=== PATIENT | female | born 1960 | race Caucasian/White ===

== ENCOUNTER 2016-10-26 06:24 | Day surgery (SDC) | payer BC ==
[~2016-10-26 06:24] MED LIST: Lactated Ringers 1,000 ML IV SCH; Sodium Chloride 0.9% 10 ML Syringe FLUSH PRN; Sodium Chloride 0.9% 2.5 ML Syringe FLUSH PRN
--- NOTE | 2016-10-26 06:57 | PCM.PREANE ---
Preanesthetic Assessment - Anesthesia/Transfusion/Family Hx Anesthesia History: Prior Anesthesia Without Reaction Family History of Anesthesia Reaction: No Transfusion History: No Prior Transfusion(s) Intubation History: Unknown - Physical Assessment O2 Sat by Pulse Oximetry: 100 Respiratory Rate: 16 Vital Signs: Last Vital Signs Temp 36.4 C 10/26/16 06:44 Pulse 74 10/26/16 06:44 Resp 16 10/26/16 06:44 BP 128/78 10/26/16 06:44 Pulse Ox 100 10/26/16 06:44 Height: 1.73 m Weight: 72.575 kg ASA Class: 2 Mental Status: Alert & Oriented x3 Airway Class: Mallampati = 2 Dentition: Reports: Normal Dentition Thyro-Mental Finger Breadths: 3 Mouth Opening Finger Breadths: 3 ROM/Head Extension: Full Lungs: Clear to Auscultation, Normal Respiratory Effort Cardiovascular: Regular Rate, Regular Rhythm - Lab Values: Laboratory Last Values Urine HCG, Qual NEGATIVE (NEGATIVE) 10/26/16 06:30 - Allergies Allergies/Adverse Reactions: Allergies Allergy/AdvReac Type Severity Reaction Status Date / Time Gadolinium-Containing Allergy Hives Verified 10/06/16 08:14 Contrast Medi - Blood Blood Available: No - Anesthesia Plan Pre-Op Medication Ordered: None - Acknowledgements Anesthesia Type Planned: MAC Pt an Appropriate Candidate for the Planned Anesthesia: Yes Alternatives and Risks of Anesthesia Discussed w Pt/Guardian: Yes Pt/Guardian Understands and Agrees with Anesthesia Plan: Yes PreAnesthesia Questionnaire HEENT History: Reports: None Gastrointestinal History: Reports: GERD Genitourinary History: Reports: None 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: 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 History: Reports: None Psychiatric History: Reports: Anxiety, Depression Oncologic (Cancer) History: Reports: Basal Cell Carcinoma Other Oncologic History: basal cell carcinoma to shoulder - Past Surgical History Head Surgeries/Procedures: Reports: None HEENT Surgical History: Reports: LASIK Female Surgical History: Reports: Tubal Ligation Dermatological Surgical History: Reports: Skin Biopsy - SUBSTANCE USE Smoking Status *Q: Never Smoker Recreational Drug Use History: No - HOME MEDS Home Medications: Home Meds Escitalopram [Lexapro] 10 mg PO DAILY 10/06/16 [History] Esomeprazole Magnesium [Nexium] 20 mg PO DAILY 10/06/16 [History] Estradiol 1 patch TRDERM ASDIRECTED 10/06/16 [History] Fluticasone Propionate [Flonase] 1 spray NASBOTH DAILY 10/06/16 [History] Progesterone,Micronized [Prometrium] 100 mg PO DAILY 10/06/16 [History] Nystatin [Nystatin Crm] 1 applic TOP ASDIRECTED PRN 10/23/16 [History] - CURRENT (IN HOUSE) MEDS Current Meds: Current Medications Lactated Ringer's (Ringers, Lactated) 1,000 mls @ 125 mls/hr IV ASDIRECTED ELSI Last Admin: 10/26/16 06:45 Dose: 125 mls/hr Sodium Chloride (Saline Flush) 10 ml FLUSH ASDIRECTED PRN PRN Reason: Keep Vein Open Sodium Chloride (Saline Flush) 2.5 ml FLUSH ASDIRECTED PRN PRN Reason: Keep Vein Open
[2016-10-26] MEDS ORDERED: Propofol 200 MG/20 ML SDV ONE ×2 (07:26→07:49)
[2016-10-26] MEDS ORDERED: fentaNYL 100 MCG/2 ML SDV ONE (07:26)
[2016-10-26] MEDS ORDERED: Midazolam 1 MG/ML 2 ML SDV ONE (07:26)
--- NOTE | 2016-10-26 08:11 | PCM.OPNOTE ---
- General Post-Op/Procedure Note Date of Surgery/Procedure: 10/26/16 Operative Procedure(s): Diagnostic EGD & Colonoscopy Findings: 1. Hyperplastic appearing Gastric polyp 2. normal appearing colon Post-Op Diagnosis: 1. Hyperplastic appearing Gastric polyp. 2. normal appearing colon Anesthesia Technique: [facility] [place] Primary Surgeon: Vivi Lui Pathology: samples obtained from Body, Antrum, Fundus & Gastric Polyp EBL in mLs: 0 Complications: None Condition: Good
--- NOTE | 2016-10-26 08:30 | PCM.PREANE ---
Preanesthetic Assessment - Anesthesia/Transfusion/Family Hx Anesthesia History: Prior Anesthesia Without Reaction Family History of Anesthesia Reaction: No Transfusion History: No Prior Transfusion(s) Intubation History: Unknown - Review of Systems General: No Symptoms Pulmonary: No Symptoms Cardiovascular: No Symptoms Gastrointestinal: No Symptoms Neurological: No Symptoms, Change in Speech - Physical Assessment NPO Status Date: 10/25/16 NPO Status Time: 23:00 O2 Sat by Pulse Oximetry: 97 Respiratory Rate: 14 Vital Signs: Last Vital Signs Temp 36.4 C 10/26/16 06:44 Pulse 85 10/26/16 08:17 Resp 14 10/26/16 08:17 BP 100/63 10/26/16 08:17 Pulse Ox 97 10/26/16 08:17 Height: 1.73 m Weight: 72.575 kg ASA Class: 2 Mental Status: Alert & Oriented x3 Airway Class: Mallampati = 2 Dentition: Reports: Dentures (upper and lower) Thyro-Mental Finger Breadths: 3 Mouth Opening Finger Breadths: 3 ROM/Head Extension: Limited/Partial Lungs: Clear to Auscultation, Normal Respiratory Effort Cardiovascular: Regular Rate, Regular Rhythm - Lab Values: Laboratory Last Values Urine HCG, Qual NEGATIVE (NEGATIVE) 10/26/16 06:30 - Allergies Allergies/Adverse Reactions: Allergies Allergy/AdvReac Type Severity Reaction Status Date / Time Gadolinium-Containing Allergy Hives Verified 10/06/16 08:14 Contrast Medi - Blood Blood Available: No - Anesthesia Plan Pre-Op Medication Ordered: None - Acknowledgements Anesthesia Type Planned: General Anesthesia Pt an Appropriate Candidate for the Planned Anesthesia: Yes Alternatives and Risks of Anesthesia Discussed w Pt/Guardian: Yes Pt/Guardian Understands and Agrees with Anesthesia Plan: Yes PreAnesthesia Questionnaire HEENT History: Reports: None Respiratory History: Reports: SOB (on exertion, can walk 2 blocks without SOB) Gastrointestinal History: Reports: GERD Genitourinary History: Reports: None 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: 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 History: Reports: Arthritis Psychiatric History: Reports: Anxiety, Depression Oncologic (Cancer) History: Reports: Basal Cell Carcinoma, Other (See Below) ( infiltrating ductal CA right breast) Other Oncologic History: basal cell carcinoma to shoulder - Past Surgical History Head Surgeries/Procedures: Reports: None HEENT Surgical History: Reports: LASIK GI Surgical History: Reports: Colonoscopy Female Surgical History: Reports: Tubal Ligation 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 Surgical History: Reports: Other (See Below) (foot surgery) Dermatological Surgical History: Reports: Skin Biopsy - SUBSTANCE USE Smoking Status *Q: Former Smoker (quit long time ago) Days Per Week of Alcohol Use: 1 Recreational Drug Use History: No - HOME MEDS Home Medications: Home Meds Escitalopram [Lexapro] 10 mg PO DAILY 10/06/16 [History] Esomeprazole Magnesium [Nexium] 20 mg PO DAILY 10/06/16 [History] Estradiol 1 patch TRDERM ASDIRECTED 10/06/16 [History] Fluticasone Propionate [Flonase] 1 spray NASBOTH DAILY 10/06/16 [History] Progesterone,Micronized [Prometrium] 100 mg PO DAILY 10/06/16 [History] Nystatin [Nystatin Crm] 1 applic TOP ASDIRECTED PRN 10/23/16 [History] - CURRENT (IN HOUSE) MEDS Current Meds: Current Medications Lactated Ringer's (Ringers, Lactated) 1,000 mls @ 125 mls/hr IV ASDIRECTED ELSI Last Admin: 10/26/16 06:45 Dose: 125 mls/hr Sodium Chloride (Saline Flush) 10 ml FLUSH ASDIRECTED PRN PRN Reason: Keep Vein Open Sodium Chloride (Saline Flush) 2.5 ml FLUSH ASDIRECTED PRN PRN Reason: Keep Vein Open Discontinued Medications Fentanyl (Sublimaze) Confirm Administered Dose 100 mcg .ROUTE .STK-MED ONE Stop: 10/26/16 07:27 Midazolam HCl (Versed 1 Mg/Ml) Confirm Administered Dose 2 mg .ROUTE .STK-MED ONE Stop: 10/26/16 07:27 Propofol (Diprivan 20 Ml) Confirm Administered Dose 200 mg .ROUTE .STK-MED ONE Stop: 10/26/16 07:27 Propofol (Diprivan 20 Ml) Confirm Administered Dose 200 mg .ROUTE .STK-MED ONE Stop: 10/26/16 07:50
[2016-10-26 10:02] VITALS: BP 115/60
--- NOTE | 2016-10-26 15:01 | OR ---
SURGEON: DARLENE HOLLOWAY MD DATE OF PROCEDURE: 10/26/2016 PREOPERATIVE DIAGNOSES: Right upper quadrant pain, irregular bowel habits. POSTOPERATIVE DIAGNOSIS: Hyperplastic gastric polyps, normal colonoscopy. PROCEDURE PERFORMED: Diagnostic esophagogastroduodenoscopy and colonoscopy. ANESTHESIA: MAC. INSTRUMENT USED: Olympus endoscope, Olympus colonoscope. EXTENT OF EXAM: To the second portion of the duodenum, to the cecum. PREPARATION: Good. LIMITATIONS: None. INDICATIONS: The patient is a 56-year-old female who presents to clinic with epigastric and right upper quadrant pain as well as a change in her bowel habits. The decision was made to perform a diagnostic EGD and colonoscopy. The patient and I discussed the procedure as well as expected perioperative course. We discussed the risks, including bleeding, infection, or damage to surrounding structures including perforation. The patient verbalized understanding and wishes to proceed. PROCEDURE IN DETAIL: The patient was brought to the endoscopy suite and placed in a beach chair position. A time-out was completed verifying the patient's name, age, date of , allergies, and procedure to be performed. A bite block was placed in the patient's mouth and monitored anesthesia care was induced. Continuous oxygen was provided via nasal cannula throughout the procedure. After adequate sedation was achieved, an Olympus endoscope was placed in the patient's mouth and advanced under direct visualization to the level of the second portion of the duodenum. The duodenum appeared normal and a photograph was taken. The scope was then pulled back while examining the color, texture, anatomy, and integrity mucosa of the upper GI tract. The remainder of the duodenum appeared normal. The scope was brought into the stomach and a photograph taken of the pylorus as well as the GE junction which appeared normal. The patient had multiple hyperplastic appearing polyps throughout the body of the stomach. Biopsies were taken of these and sent to Pathology. Biopsies of the normal gastric antrum, body, and fundus were sent for H. pylori testing. The scope was then brought into the esophagus and a photograph taken of the GE junction which appeared normal. The remainder of the esophageal mucosa appeared free of pathology. The scope was removed from the patient and this portion of the procedure was terminated. The patient was placed in the left lateral decubitus position. A digital rectal exam performed. The patient had a small posterior anal skin tag, but otherwise appeared grossly normal. A well-lubricated colonoscope was inserted into the rectum and advanced under direct visualization to the level of the cecum. The cecum was identified by both visual and anatomic landmarks. A photograph was taken of the cecal cap. I was unable to retroflex the scope within the cecum due to looping of the scope more proximally. The scope was then fully withdrawn while examining the color, texture, anatomy, and integrity mucosa from the cecum to the anal canal. This was consistent with normal colonic mucosa. The scope was brought into the rectum and retroflexed to allow visualization of the anal canal opening. This appeared normal and a photograph was taken. The scope was then straightened out and removed from the patient. The cecum to anus time was 7 minutes. The patient tolerated the procedure well and was taken to PACU in stable condition. ENDOSCOPIC DIAGNOSIS: Hyperplastic gastric polyp. RECOMMENDATIONS: Follow up in clinic in 2 weeks. LINDSAY DE LEON /[id number]
== END 2016-10-26 09:00 | disposition home or self-care (01) ==
LOC: MW.SDS 06:24
PROVIDERS: ATTEND Surgery
PROC: 0DB68ZX Excision of Stomach, Via Natural or Artificial Opening Endoscopic, Diagnostic (ICD-10-PCS; principal; 2016-10-26)
PROC: 0DJD8ZZ Inspection of Lower Intestinal Tract, Via Natural or Artificial Opening Endoscopic (ICD-10-PCS; 2016-10-26)
DX: K31.7 Polyp of stomach and duodenum (principal); K21.9 Gastro-esophageal reflux disease without esophagitis; F41.9 Anxiety disorder, unspecified; F32.9 Major depressive disorder, single episode, unspecified; Z79.51 Long term (current) use of inhaled steroids; Z79.899 Other long term (current) drug therapy; Z79.890 Hormone replacement therapy; Z91.041 Radiographic dye allergy status; Z98.51 Tubal ligation status; Z98.890 Other specified postprocedural states; Z85.820 Personal history of malignant melanoma of skin
CPT/HCPCS: 43239; 45378; 81025; J2250; J3010; J7120; 00740; 88305; 88312; J2704

== ENCOUNTER 2017-05-09 06:36 | Day surgery (SDC) | payer BC ==
[~2017-05-09 06:36] MED LIST changes: +ceFAZolin 2 GM in Premix Bag 1 BAG IV ONE
[2017-05-09] MEDS ORDERED: Scopolamine 1.5 MG Transdermal Patch TRDERM PRN (06:56)
--- NOTE | 2017-05-09 07:02 | PCM.PREANE ---
Preanesthetic Assessment - Anesthesia/Transfusion/Family Hx Anesthesia History: Prior Anesthesia Without Reaction Family History of Anesthesia Reaction: No Transfusion History: No Prior Transfusion(s) Intubation History: Unknown - Review of Systems General: No Symptoms Pulmonary: No Symptoms Cardiovascular: No Symptoms Gastrointestinal: No Symptoms Neurological: No Symptoms - Physical Assessment NPO Status Date: 05/08/17 Height: 1.73 m Weight: 73.028 kg ASA Class: 2 Mental Status: Alert & Oriented x3 Airway Class: Mallampati = 1 Dentition: Reports: Normal Dentition ROM/Head Extension: Full Lungs: Clear to Auscultation - Lab Values: Laboratory Last Values Urine HCG, Qual NEGATIVE (NEGATIVE) 05/09/17 06:51 - Allergies Allergies/Adverse Reactions: Allergies Allergy/AdvReac Type Severity Reaction Status Date / Time Gadolinium-Containing Allergy Hives Verified 05/03/17 14:12 Contrast Medi - Blood Blood Available: Yes - Anesthesia Plan Pre-Op Medication Ordered: Other (scop) - Acknowledgements Anesthesia Type Planned: General Anesthesia Pt an Appropriate Candidate for the Planned Anesthesia: Yes Alternatives and Risks of Anesthesia Discussed w Pt/Guardian: Yes Pt/Guardian Understands and Agrees with Anesthesia Plan: Yes PreAnesthesia Questionnaire HEENT History: Reports: None Respiratory History: Reports: None Gastrointestinal History: Reports: GERD Genitourinary History: Reports: None 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: 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 History: Reports: Fracture Other 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 History: fx foot Neurological History: Reports: None Psychiatric History: Reports: Anxiety, Depression Endocrine/Metabolic History: Reports: None Hematologic History: Reports: None Immunologic History: Reports: None Oncologic (Cancer) History: Reports: Basal Cell Carcinoma, Other (See Below) Other Oncologic History: basal cell carcinoma to shoulder Dermatologic History: Reports: None - Past Surgical History Head Surgeries/Procedures: Reports: None HEENT Surgical History: Reports: LASIK GI Surgical History: Reports: Colonoscopy Female Surgical History: Reports: Tubal Ligation 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 Surgical History: Dermatological Surgical History: Reports: Skin Biopsy - SUBSTANCE USE Smoking Status *Q: Never Smoker Days Per Week of Alcohol Use: 1 Recreational Drug Use History: No - HOME MEDS Home Medications: Home Meds Escitalopram [Lexapro] 20 mg PO DAILY 10/06/16 [History] Estradiol 1 patch TRDERM ASDIRECTED 10/06/16 [History] Fluticasone Propionate [Flonase] 1 spray NASBOTH DAILY 10/06/16 [History] Progesterone,Micronized [Prometrium] 100 mg PO DAILY 10/06/16 [History] Pantoprazole Sodium 40 mg PO DAILY 05/03/17 [History] Sucralfate 1 gm PO TID 05/03/17 [History] - CURRENT (IN HOUSE) MEDS Current Meds: Current Medications Lactated Ringer's (Ringers, Lactated) 1,000 mls @ 125 mls/hr IV ASDIRECTED ELSI Scopolamine (Transderm-Scop) 1.5 mg TRDERM Q72H PRN PRN Reason: Nausea/Vomiting Sodium Chloride (Saline Flush) 10 ml FLUSH ASDIRECTED PRN PRN Reason: Keep Vein Open Sodium Chloride (Saline Flush) 2.5 ml FLUSH ASDIRECTED PRN PRN Reason: Keep Vein Open Discontinued Medications Cefazolin Sodium/Dextrose 2 gm (/ Premix) 50 mls @ 100 mls/hr IV ONETIME ONE Stop: 05/07/17 13:45
[2017-05-09] MEDS ORDERED: Bupivacaine 0.5% 30 ML SDV ONE (07:27)
[2017-05-09] MEDS ORDERED: Ondansetron 4 MG/2 ML SDV ONE ×2 (07:35→07:37)
[2017-05-09] MEDS ORDERED: Lidocaine 2% 5 ML SDV ONE ×2 (07:35→07:37)
[2017-05-09] MEDS ORDERED: Dexamethasone 4 MG/ML 5 ML MDV ONE ×2 (07:35→07:37)
[2017-05-09] MEDS ORDERED: Ketorolac 30 MG/ML SDV ONE ×2 (07:35→07:37)
[2017-05-09] MEDS ORDERED: Atropine 1 MG/ML SDV ONE ×2 (07:35→07:37)
[2017-05-09] MEDS ORDERED: Rocuronium 10 MG/ML 10 ML Syringe ONE ×2 (07:35→07:37)
[2017-05-09] MEDS ORDERED: Midazolam 1 MG/ML 2 ML SDV ONE (07:36)
[2017-05-09] MEDS ORDERED: Propofol 200 MG/20 ML SDV ONE (07:36)
[2017-05-09] MEDS ORDERED: fentaNYL 100 MCG/2 ML SDV ONE (07:36)
[2017-05-09] MEDS ORDERED: ceFAZolin 1 GM Vial ONE (07:37)
[2017-05-09] MEDS ORDERED: Neostigmine Methylsulfate 1 MG/ML 5 ML Syringe ONE (08:27)
[2017-05-09] MEDS ORDERED: ePHEDrine 50 MG/ML SDV ONE (08:45)
[2017-05-09] MEDS: fentaNYL 100 MCG/2 ML SDV IVPUSH PRN ×3 (09:38→11:41)
--- NOTE | 2017-05-09 09:41 | PCM.OPNOTE ---
- General Post-Op/Procedure Note Date of Surgery/Procedure: 05/09/17 Operative Procedure(s): Laparoscopic cholecystectomy Findings: Normal appearing gallbladder Pre Op Diagnosis: Biliary colic Post-Op Diagnosis: same Anesthesia Technique: General ET Tube Primary Surgeon: Vivi Lui Fluid Replacement, Intraop: 1,500 Output, Urine Amount: 500 EBL in mLs: 5 Condition: Good
--- NOTE | 2017-05-09 10:01 | PCM.POSTAN ---
POST ANESTHESIA ASSESSMENT - MENTAL STATUS Mental Status: Alert, Oriented - RESPIRATORY Respiratory Status: Respiratory Rate WNL, Airway Patent, O2 Saturation Stable - CARDIOVASCULAR CV Status: Pulse Rate WNL, Blood Pressure Stable - GASTROINTESTINAL GI Status: No Symptoms - PAIN Pain Score: 4 - POST OP HYDRATION Hydration Status: Adequate & Stable - OBSERVATIONS Free Text/Narrative:: Pt stable for discharge to phase II recovery with no apparent anesthesia problems
[2017-05-09] MEDS ORDERED: Acetaminophen/oxyCODONE 325-5 MG Tab PO ONE (11:18)
--- NOTE | 2017-05-09 13:08 | PCM48HPAN ---
Post Anesthesia Note - EVALUATION WITHIN 48HRS OF ANESTHETIC Vital Signs in Normal Range: Yes Patient Participated in Evaluation: Yes Respiratory Function Stable: Yes Airway Patent: Yes Cardiovascular Function Stable: Yes Hydration Status Stable: Yes Pain Control Satisfactory: Yes Nausea and Vomiting Control Satisfactory: Yes Mental Status Recovered: Yes
[2017-05-09 13:31] VITALS: BP 123/69
--- NOTE | 2017-05-09 17:11 | OR ---
SURGEON: VIVI HOLLOWAY MD DATE OF PROCEDURE: 05/09/2017 PREOPERATIVE DIAGNOSIS: Biliary hyperkinesia with biliary colic. POSTOPERATIVE DIAGNOSIS: Biliary hyperkinesia with biliary colic. PROCEDURE PERFORMED: Laparoscopic cholecystectomy. PRIMARY SURGEON: Vivi Holloway MD ANESTHESIA: General endotracheal anesthesia. FLUIDS: 1500 mL of crystalloid. URINE OUTPUT: 500 mL. ESTIMATED BLOOD LOSS: 5 mL. FINDINGS: Normal-appearing gallbladder. COMPLICATIONS: None. INDICATIONS: The patient is a 56-year-old female, who presents with right upper quadrant pain that occurs after meals. She underwent a right upper quadrant ultrasound that was normal. A HIDA scan was performed that showed a gallbladder ejection fraction greater than 90%. The patient underwent a diagnostic EGD that showed mild gastritis. She has been on sucralfate and Protonix for greater than 3 months now with no improvement in her symptoms. The patient also notes that the pain that she is experiencing occurred right after administration of the cholecystokinin during the HIDA scan. The decision was made to remove her gallbladder due to biliary hyperkinesia. The patient and I discussed the procedure as well as expected perioperative course. We discussed the risks including bleeding, infection, or damage to surrounding structures, including damage to the common bile duct. The patient verbalized understanding and wishes to proceed. PROCEDURE IN DETAIL: The patient was brought into the OR and placed on the OR table in supine position. A time-out was completed verifying the patient's name, age, date of , allergies, and procedure to be performed. General endotracheal anesthesia was induced. The left arm was tucked at the patient's side and a Chong catheter placed. The abdomen was prepped and draped in usual standard fashion. The infraumbilical fold was anesthetized with 0.5% Marcaine plain. An incision was made along the infraumbilical fold using an 11 blade. Cautery was used to dissect down to the level of the subcutaneous fat. S retractors were used to dissect down to the level of fascia. The fascia was grasped with Mago's and sharply incised with the curved Figueredo scissors. Entry into the abdomen was noted. A 12 mm Sally trocar was placed through the incision and the abdomen insufflated. A 5 mm 30-degree scope was inserted in the abdomen and I inspected the area underneath my initial incision site. There appeared to be no damage to surrounding structures. The patient was placed into reverse Trendelenburg position and airplaned slightly to the left. 5 mm trocars were placed in the following locations under direct visualization; 1 in the epigastric area, 1 in the right flank, and 1 along the right subcostal margin along the midclavicular line. The dome of the gallbladder was grasped with an atraumatic grasper through the right flank port and elevated above the liver. The infundibulum was noted and grasped with an atraumatic grasper through the subcostal port. The infundibulum was retracted to the right and inferiorly. The peritoneum overlying the cystic duct and artery was dissected away to obtain my critical view. Once I could identify my cystic duct, cystic artery, and I cleared away at one-third of the proximal cystic plate, I doubly clipped and ligated the cystic duct and artery. Electrocautery was used to dissect the gallbladder off the remainder of the gallbladder fossa. The gallbladder was then placed in an EndoCatch bag and removed through the infraumbilical port site. My 12 mm Sally trocar was then replaced in the abdomen and I inspected my operative field. The clips appeared to be in good position with no evidence of bile leakage and the operative field was hemostatic. The 5 mm trocars were then removed under direct visual visualization and the abdomen allowed to desufflate after removal of the 12 mm trocar. The fascia at the infraumbilical port site was closed with interrupted 0 Vicryl sutures. The subcutaneous fat was closed with interrupted 3-0 Vicryl and the skin was closed with a running 4- 0 Monocryl stitch. The 5 mm trocar sites were closed with interrupted 4-0 Monocryl. Steri-Strips and sterile dressings were applied. The patient tolerated the procedure well and was extubated and taken to the PACU in stable condition. LINDSAY DE LEON /[id number]
== END 2017-05-09 12:35 | disposition home or self-care (01) ==
LOC: MW.SDS 06:36
PROVIDERS: ATTEND Surgery
DX: K80.10 Calculus of gallbladder with chronic cholecystitis without obstruction (principal); K21.9 Gastro-esophageal reflux disease without esophagitis; F41.9 Anxiety disorder, unspecified; F32.9 Major depressive disorder, single episode, unspecified; Z98.890 Other specified postprocedural states; Z91.041 Radiographic dye allergy status; Z79.899 Other long term (current) drug therapy; Z98.51 Tubal ligation status; Z85.828 Personal history of other malignant neoplasm of skin
CPT/HCPCS: 47562; 81025; 88304; A9270; J0461; J0690; J1100; J1885; J2250; J2405; J3010; J7120; 00790; J2704

== ENCOUNTER 2017-05-13 12:40 | Observation (INO) | payer BC ==
[2017-05-13] MEDS ORDERED: Sodium Chloride 0.9% 1,000 ML IV ONE (13:06)
[2017-05-13] MEDS ORDERED: Ondansetron 4 MG/2 ML SDV IVPUSH ONE ×2 (13:06→14:53)
[2017-05-13] MEDS ORDERED: Sodium Chloride 0.9% 10 ML Syringe FLUSH PRN (13:06)
[2017-05-13] MEDS ORDERED: Sodium Chloride 0.9% 2.5 ML Syringe FLUSH PRN (13:06)
--- NOTE | 2017-05-13 13:17 | EDM.PDOC ---
ED HPI GENERAL MEDICAL PROBLEM - General Chief Complaint: Syncope Stated Complaint: BLACK OUT/FALL/HIT MOUTH Time Seen by Provider: 05/13/17 12:46 - History of Present Illness INITIAL COMMENTS - FREE TEXT/NARRATIVE: HISTORY AND PHYSICAL: History of present illness: The patient is a 56-year-old female who presents after having a syncopal event today and hitting her face and head. The patient underwent a laparoscopic cholecystectomy here on May 09 and has been doing well from that standpoint but did have nausea on Sunday and all day yesterday. Today she continued to have nausea and started having dry heaves prior to her syncopal event. Patient said she did not have vomiting yesterday and she's had no fevers chest pain and only mild abdominal pain at the incisions on her abdomen. Today she was leaving the bathroom at her home after going going to the bathroom and had nausea and some dry heaves while there and then had a syncopal event falling on the last step of her stairs and hitting her face. Patient says she has head and face pain since that event but no arm or leg back or chest wall pain. SHe says she has an neck ache but no specific area of pain. She has no neurosensory changes or extremity pain. She has no chest wall pain no shortness of breath and she remains nauseated. She has no mid or lower back pain. Patient lives alone and she is unsure exactly how long she was unconscious for but it was not for a significant amount of time. Patient says that her nose lip and teeth hurt and she did chip one of her front teeth. Patient says that today she is only a few crackers and yesterday she did not eat or drink much at all as well Review of systems: As per history of present illness and below otherwise all systems reviewed and negative. Past medical history: As per history of present illness and as reviewed below otherwise noncontributory. Surgical history: As per history of present illness and as reviewed below otherwise noncontributory. Social history: No reported history of drug or alcohol abuse. Family history: As per history of present illness and as reviewed below otherwise noncontributory. Physical exam: Gen.: Well-developed well-nourished female who is nontoxic and moves easily in the ED without distress or assistance. Vital signs have been noted by me HEENT: Atraumatic, normocephalic, pupils reactive, EOMs intact, there is no nasal blood and TMs are normal bilaterally negative for conjunctival pallor or scleral icterus, mucous membranes moist, throat clear, neck supple, nontender, trachea midline. There are no midline step-offs or defects of the cervical spine but there is some diffuse mid cervical spine tenderness and a c-collar was placed. Bite is normal and there is no mandible or maxillary tenderness but there is swelling of her upper lip without laceration and there is a small chip defect of her right central incisor. On palpation of the nasal bridge there is no instability but there is tenderness and there is no orbital defects crepitus or deformities but there is some diffuse tenderness. There are no lacerations of the face. On palpation of the teeth there is no gross subluxation appreciated even of the right central incisor Lungs: Clear to auscultation, breath sounds equal bilaterally, chest nontender. Heart: S1S2, regular, negative for clicks, rubs, or JVD. Abdomen: Soft, nondistended, intimal mid abdominal tenderness without localization no rebound or guarding. Bowel sounds are slightly hypoactive. The patient's incisional areas are healing without any drainage leakage or erythema Negative for masses or hepatosplenomegaly. Negative for costovertebral tenderness. Pelvis: Stable nontender. Genitourinary: Deferred. Rectal: Deferred. Extremities: Atraumatic with the exception of a superficial abrasion seen at the dorsal aspect of the left thumb without swelling or palpable bony deformities or tenderness., negative for cords or calf pain. Neurovascular unremarkable. Full range of motion without any defects or deficits Neuro: Awake, alert, oriented. Cranial nerves II through XII unremarkable. Cerebellum unremarkable. Motor and sensory unremarkable throughout. Exam nonfocal. Back: There are no midline step-offs tenderness defects of the thoracic or lumbar spine no soft tissue evidence of trauma such as ecchymosis soft tissue swelling or erythema Diagnostics: EKG orthostatic vitals CBC CMP amylase lipase UA urine culture troponin CT scan of the head C-spine and facial bones [employer]: IV O2 monitor c-collar was placed IV fluids Zofran On orthostatic vitals the patient's blood pressure does not change with position change but her heart rate did go up more than 20. On reevaluation the patient states that she still feels somewhat nauseated but is very thirsty so we will give her some ice chips. The c-collar was removed as the CT of the C-spine was negative. I discussed with them the CT scan findings of the left posterior molar and she states she is aware of that she has an impacted wisdom tooth that does involve her sinus and that is not new or different. She currently is having no pain there. I discussed with her admission for observation due to her syncopal event and back that she lives by herself. She also states that she does not feel back at her baseline and I agree that observation will be the safest and medically best care plan. I will inform Dr. Lui her surgeon of today's events as a courtesy and will discuss the case with the hospitalist Dr. Mak; after discussing the case with both of them at 1502 Dr. Lui will be admitting the patient. Impression: Syncopal event ,with blunt facial trauma and tooth injury/facial contusions , likely secondary to poor by mouth intake and orthostasis; history of recent laparoscopic cholecystectomy Definitive disposition and diagnosis as appropriate pending reevaluation and review of above. face Pain Score (Numeric/FACES): 7 - Related Data Allergies Allergy/AdvReac Type Severity Reaction Status Date / Time Gadolinium-Containing Allergy Hives Verified 05/13/17 12:46 Contrast Medi Home Meds: Home Meds Escitalopram [Lexapro] 20 mg PO DAILY 10/06/16 [History] Estradiol 1 patch TRDERM ASDIRECTED 10/06/16 [History] Fluticasone Propionate [Flonase] 1 spray NASBOTH DAILY 10/06/16 [History] Progesterone,Micronized [Prometrium] 100 mg PO DAILY 10/06/16 [History] Past Medical History HEENT History: Reports: None Respiratory History: Reports: None Gastrointestinal History: Reports: GERD Genitourinary History: Reports: None 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: 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 History: Reports: Fracture Other 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 History: fx foot Neurological History: Reports: None Psychiatric History: Reports: Anxiety, Depression Endocrine/Metabolic History: Reports: None Hematologic History: Reports: None Immunologic History: Reports: None Oncologic (Cancer) History: Reports: Basal Cell Carcinoma, Other (See Below) Other Oncologic History: basal cell carcinoma to shoulder Dermatologic History: Reports: None - Past Surgical History Head Surgeries/Procedures: Reports: None HEENT Surgical History: Reports: LASIK GI Surgical History: Reports: Colonoscopy Female Surgical History: Reports: Tubal Ligation Dermatological Surgical History: Reports: Skin Biopsy Social & Family History - Family History Family Medical History: Noncontributory - Tobacco Use Smoking Status *Q: Never Smoker - Caffeine Use Caffeine Use: Reports: None - Alcohol Use Days Per Week of Alcohol Use: 1 - Recreational Drug Use Recreational Drug Use: No Drug Use in Last 12 Months: No ED ROS GENERAL - Review of Systems Review Of Systems: ROS reveals no pertinent complaints other than HPI. ED EXAM, GENERAL - Physical Exam Exam: See Below (See dictation) Course - Vital Signs Last Recorded V/S: Last Vital Signs Temp 35.7 C 05/13/17 12:48 Pulse 84 05/13/17 12:48 Resp 18 05/13/17 12:48 BP 117/72 05/13/17 12:48 Pulse Ox 100 05/13/17 12:48 Orthostatic Blood Pressure [ 105/72 Standing] Orthostatic Blood Pressure [ 106/63 Sitting] Orthostatic Blood Pressure [ 115/67 Supine] - Orders/Labs/Meds Orders: Active Orders 24 hr Category Date Time Status Cardiac Monitoring [RC] . DIRECTED Care 05/13/17 13:04 Active EKG Documentation Completion [RC] STAT Care 05/13/17 13:04 Active Orthostatic Vital Signs [RC] ASDIRECTED Care 05/13/17 13:07 Active Oxygen Therapy, ED [RC] ASDIRECTED Care 05/13/17 13:04 Active Pulse Oximetry [RC] ASDIRECTED Care 05/13/17 13:04 Active Cervical Spine wo Cont [CT] Stat Exams 05/13/17 13:06 Taken Head wo Cont [CT] Stat Exams 05/13/17 13:05 Taken Max Facial Sinus wo Cont [CT] Stat Exams 05/13/17 13:05 Taken CULTURE URINE [RM] Stat Lab 05/13/17 13:30 Received Sodium Chloride 0.9% [Normal Saline] 1,000 ml Med 05/13/17 15:00 Active IV ASDIRECTED Sodium Chloride 0.9% [Saline Flush] Med 05/13/17 13:06 Active 10 ml FLUSH ASDIRECTED PRN Sodium Chloride 0.9% [Saline Flush] Med 05/13/17 13:06 Active 2.5 ml FLUSH ASDIRECTED PRN Saline Lock Insert [OM.PC] Stat Oth 05/13/17 13:04 Ordered Medication Orders Sodium Chloride (Normal Saline) 1,000 mls @ 150 mls/hr IV ASDIRECTED ELSI Sodium Chloride (Saline Flush) 10 ml FLUSH ASDIRECTED PRN PRN Reason: Keep Vein Open Last Admin: 05/13/17 13:26 Dose: 10 ml Sodium Chloride (Saline Flush) 2.5 ml FLUSH ASDIRECTED PRN PRN Reason: Keep Vein Open Last Admin: 05/13/17 13:26 Dose: 2.5 ml Labs: Laboratory Tests 05/13/17 05/13/17 05/13/17 Range/Units 13:14 13:14 13:14 WBC 8.07 (4.0-11.0) K/uL RBC 4.51 (4.30-5.90) M/uL Hgb 12.3 (12.0-16.0) g/dL Hct 37.7 (36.0-46.0) % MCV 83.6 (80.0-98.0) fL MCH 27.3 (27.0-32.0) pg MCHC 32.6 (31.0-37.0) g/dL RDW Std Deviation 41.6 (28.0-62.0) fl RDW Coeff of Rashel 14 (11.0-15.0) % Plt Count 236 (150-400) K/uL MPV 9.50 (7.40-12.00) fL Neut % (Auto) 63.5 (48.0-80.0) % Lymph % (Auto) 29.6 (16.0-40.0) % Pine % (Auto) 6.2 (0.0-15.0) % Eos % (Auto) 0.6 (0.0-7.0) % Baso % (Auto) 0.1 (0.0-1.5) % Neut # (Auto) 5.1 (1.4-5.7) K/uL Lymph # (Auto) 2.4 (0.6-2.4) K/uL Pine # (Auto) 0.5 (0.0-0.8) K/uL Eos # (Auto) 0.1 (0.0-0.7) K/uL Baso # (Auto) 0.0 (0.0-0.1) K/uL Nucleated RBC % 0.0 /100WBC Nucleated RBCs # 0 K/uL Sodium 136 (136-146) mmol/L Potassium 3.3 L (3.5-5.1) mmol/L Chloride 106 (98-110) mmol/L Carbon Dioxide 20 L (21-31) mmol/L BUN 15 (6.0-23.0) mg/dL Creatinine 1.1 (0.6-1.5) mg/dL Est Cr Clr Drug Dosing 58.98 mL/min Estimated GFR (MDRD) 51.8 ml/min Glucose 149 H (60-110) mg/dL Calcium 9.1 (8.8-10.8) mg/dL Total Bilirubin 1.3 (0.1-1.5) mg/dL AST 44 H (5-40) IU/L ALT 58 H (8-54) IU/L Alkaline Phosphatase 64 (40-150) Creatine Kinase 137 (9-236) IU/L Troponin I < 0.10 (0.0-0.29) NG/ML Total Protein 6.9 (6.0-8.0) g/dL Albumin 3.9 (3.5-5.0) g/dL Globulin 3.0 (2.0-3.5) g/dL Albumin/Globulin Ratio 1.3 (1.3-2.8) Amylase 54 (10-90) U/L Lipase 24 (7-80) U/L Urine Color Urine Appearance Urine pH (5.0-8.0) Ur Specific Ruth (1.001-1.035) Urine Protein (NEGATIVE) mg/dL Urine Glucose (UA) (NEGATIVE) mg/dL Urine Ketones (NEGATIVE) mg/dL Urine Occult Blood (NEGATIVE) Urine Nitrite (NEGATIVE) Urine Bilirubin (NEGATIVE) Urine Urobilinogen (<2.0) EU/dL Ur Leukocyte Esterase (NEGATIVE) Urine RBC (0-2/HPF) Urine WBC (0-5/HPF) Ur Epithelial Cells (NONE-FEW) Urine Bacteria (NEGATIVE) Urine Mucus (NONE-MOD) Urinalysis Comment 05/13/17 Range/Units 13:30 WBC (4.0-11.0) K/uL RBC (4.30-5.90) M/uL Hgb (12.0-16.0) g/dL Hct (36.0-46.0) % MCV (80.0-98.0) fL MCH (27.0-32.0) pg MCHC (31.0-37.0) g/dL RDW Std Deviation (28.0-62.0) fl RDW Coeff of Rashel (11.0-15.0) % Plt Count (150-400) K/uL MPV (7.40-12.00) fL Neut % (Auto) (48.0-80.0) % Lymph % (Auto) (16.0-40.0) % Pine % (Auto) (0.0-15.0) % Eos % (Auto) (0.0-7.0) % Baso % (Auto) (0.0-1.5) % Neut # (Auto) (1.4-5.7) K/uL Lymph # (Auto) (0.6-2.4) K/uL Pine # (Auto) (0.0-0.8) K/uL Eos # (Auto) (0.0-0.7) K/uL Baso # (Auto) (0.0-0.1) K/uL Nucleated RBC % /100WBC Nucleated RBCs # K/uL Sodium (136-146) mmol/L Potassium (3.5-5.1) mmol/L Chloride (98-110) mmol/L Carbon Dioxide (21-31) mmol/L BUN (6.0-23.0) mg/dL Creatinine (0.6-1.5) mg/dL Est Cr Clr Drug Dosing mL/min Estimated GFR (MDRD) ml/min Glucose (60-110) mg/dL Calcium (8.8-10.8) mg/dL Total Bilirubin (0.1-1.5) mg/dL AST (5-40) IU/L ALT (8-54) IU/L Alkaline Phosphatase (40-150) Creatine Kinase (9-236) IU/L Troponin I (0.0-0.29) NG/ML Total Protein (6.0-8.0) g/dL Albumin (3.5-5.0) g/dL Globulin (2.0-3.5) g/dL Albumin/Globulin Ratio (1.3-2.8) Amylase (10-90) U/L Lipase (7-80) U/L Urine Color DARK YELLOW Urine Appearance SLT CLOUDY Urine pH 7.5 (5.0-8.0) Ur Specific Ruth 1.020 (1.001-1.035) Urine Protein 30 (NEGATIVE) mg/dL Urine Glucose (UA) NEGATIVE (NEGATIVE) mg/dL Urine Ketones 15 H (NEGATIVE) mg/dL Urine Occult Blood NEGATIVE (NEGATIVE) Urine Nitrite NEGATIVE (NEGATIVE) Urine Bilirubin NEGATIVE (NEGATIVE) Urine Urobilinogen 1.0 (<2.0) EU/dL Ur Leukocyte Esterase NEGATIVE (NEGATIVE) Urine RBC 0-2 (0-2/HPF) Urine WBC 1-2 (0-5/HPF) Ur Epithelial Cells MANY (NONE-FEW) Urine Bacteria 2+ H (NEGATIVE) Urine Mucus MODERATE (NONE-MOD) Urinalysis Comment Meds: Medications Generic Name Dose Route Start Last Admin Trade Name Freq PRN Reason Stop Dose Admin Sodium Chloride 1,000 mls @ 150 mls/hr 05/13/17 15:00 Normal Saline IV ASDIRECTED ELSI Sodium Chloride 10 ml 05/13/17 13:06 05/13/17 13:26 Saline Flush FLUSH 10 ml ASDIRECTED PRN Administration Keep Vein Open Sodium Chloride 2.5 ml 05/13/17 13:06 05/13/17 13:26 Saline Flush FLUSH 2.5 ml ASDIRECTED PRN Administration Keep Vein Open Discontinued Medications Generic Name Dose Route Start Last Admin Trade Name Freq PRN Reason Stop Dose Admin Sodium Chloride 1,000 mls @ 999 mls/hr 05/13/17 13:06 05/13/17 13:26 Normal Saline IV 05/13/17 14:06 999 mls/hr STAT ONE Administration Ondansetron HCl 4 mg 05/13/17 13:06 05/13/17 13:32 Zofran IVPUSH 05/13/17 13:07 4 mg ONETIME ONE Administration Ondansetron HCl 4 mg 05/13/17 14:53 Zofran IVPUSH 05/13/17 14:54 ONETIME ONE Potassium Chloride 40 meq 05/13/17 14:52 Klor-Con M20 PO 05/13/17 14:53 ONETIME ONE Departure - Departure Time of Disposition: 15:07 Disposition: Refer to Observation Condition: Good Clinical Impression: Syncope Qualifiers: Syncope type: unspecified Qualified Code(s): R55 - Syncope and collapse - Discharge Information Referrals: Melva Anthony MD [Primary Care Provider] - Forms: ED Department Discharge - My Orders Last 24 Hours: My Active Orders 05/13/17 13:04 Cardiac Monitoring [RC] . DIRECTED EKG Documentation Completion [RC] STAT Oxygen Therapy, ED [RC] ASDIRECTED Pulse Oximetry [RC] ASDIRECTED Saline Lock Insert [OM.PC] Stat 05/13/17 13:05 Head wo Cont [CT] Stat Max Facial Sinus wo Cont [CT] Stat 05/13/17 13:06 Cervical Spine wo Cont [CT] Stat Sodium Chloride 0.9% [Saline Flush] 10 ml FLUSH ASDIRECTED PRN Sodium Chloride 0.9% [Saline Flush] 2.5 ml FLUSH ASDIRECTED PRN 05/13/17 13:07 Orthostatic Vital Signs [RC] ASDIRECTED 05/13/17 13:30 CULTURE URINE [RM] Stat 05/13/17 15:00 Sodium Chloride 0.9% [Normal Saline] 1,000 ml IV ASDIRECTED - Assessment/Plan Last 24 Hours: My Active Orders 05/13/17 13:04 Cardiac Monitoring [RC] . DIRECTED EKG Documentation Completion [RC] STAT Oxygen Therapy, ED [RC] ASDIRECTED Pulse Oximetry [RC] ASDIRECTED Saline Lock Insert [OM.PC] Stat 05/13/17 13:05 Head wo Cont [CT] Stat Max Facial Sinus wo Cont [CT] Stat 05/13/17 13:06 Cervical Spine wo Cont [CT] Stat Sodium Chloride 0.9% [Saline Flush] 10 ml FLUSH ASDIRECTED PRN Sodium Chloride 0.9% [Saline Flush] 2.5 ml FLUSH ASDIRECTED PRN 05/13/17 13:07 Orthostatic Vital Signs [RC] ASDIRECTED 05/13/17 13:30 CULTURE URINE [RM] Stat 05/13/17 15:00 Sodium Chloride 0.9% [Normal Saline] 1,000 ml IV ASDIRECTED
[2017-05-13 13:50] LABS: CHLORIDE,CL 106 mmol/L (98-110); SODIUM,NA 136 mmol/L (136-146)
[2017-05-13] MEDS ORDERED: Potassium Chloride 20 MEQ Tab.ER PO ONE (14:52)
[2017-05-13] MEDS: Sodium Chloride 0.9% 1,000 ML IV SCH ×2 (15:11→21:15)
[2017-05-13] MEDS ORDERED: Promethazine 25 MG/ML SDV IM PRN (15:35)
[2017-05-13] MEDS ORDERED: HYDROmorphone 1 MG/ML Syringe IVPUSH PRN (15:35)
[2017-05-13] MEDS ORDERED: Ondansetron 4 MG/2 ML SDV IVPUSH PRN (15:35)
--- NOTE | 2017-05-13 15:46 | PCM.HP ---
H&P History of Present Illness - General Date of Service: 05/13/17 Source of Information: Patient History Limitations: Reports: No Limitations - History of Present Illness Initial Comments - Free Text/Narative: Patient is a 56 year old female who underwent an uncomplicated laparoscopic cholecystectomy on May 09, 2017 for biliary hyperkinesia and biliary colic. She was discharged home the same day. She was feeling well until Sunday night when she became nauseated. She developed dry heaves the next day and quit eating and drinking fluids. She continued to make urine and last urinated this morning. She had an unwitnessed syncopal event after going to the bathroom. She was walking down some stairs afterwards and woke up on the ground. She had chipped her tooth and had bruising on her upper lip. She had a small area of bruising on her left thumb. She was brought in by EMS. She had an elevated heart rate with standing, but her vitals were stable. A head, facial and neck CT were normal. Her labs showed mildly elevated AST, ALT. Bilirubin was within normal limits. BUN/Cr were within normal limits. Troponin and EKG were normal. CBC was normal. Her UA showed some bacteria but many epithelial cells. She feels well now other than lip pain. face Pain Score (Numeric/FACES): 7 - Related Data Allergies/Adverse Reactions: Allergies Allergy/AdvReac Type Severity Reaction Status Date / Time Gadolinium-Containing Allergy Hives Verified 05/13/17 12:46 Contrast Medi Home Medications: Home Meds Escitalopram [Lexapro] 20 mg PO DAILY 10/06/16 [History] Estradiol 1 patch TRDERM ASDIRECTED 10/06/16 [History] Fluticasone Propionate [Flonase] 1 spray NASBOTH DAILY 10/06/16 [History] Progesterone,Micronized [Prometrium] 100 mg PO DAILY 10/06/16 [History] Past Medical History HEENT History: Reports: None Respiratory History: Reports: None Gastrointestinal History: Reports: GERD Genitourinary History: Reports: None 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: 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 History: Reports: Fracture Other 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 History: fx foot Neurological History: Reports: None Psychiatric History: Reports: Anxiety, Depression Endocrine/Metabolic History: Reports: None Hematologic History: Reports: None Immunologic History: Reports: None Oncologic (Cancer) History: Reports: Basal Cell Carcinoma, Other (See Below) Other Oncologic History: basal cell carcinoma to shoulder Dermatologic History: Reports: None - Past Surgical History Head Surgeries/Procedures: Reports: None HEENT Surgical History: Reports: LASIK GI Surgical History: Reports: Colonoscopy Female Surgical History: Reports: Tubal Ligation Dermatological Surgical History: Reports: Skin Biopsy Social & Family History - Family History Family Medical History: Noncontributory - Tobacco Use Smoking Status *Q: Never Smoker - Caffeine Use Caffeine Use: Reports: None - Alcohol Use Days Per Week of Alcohol Use: 1 - Recreational Drug Use Recreational Drug Use: No Drug Use in Last 12 Months: No H&P Review of Systems - Review of Systems: Review Of Systems: ROS reveals no pertinent complaints other than HPI. Exam - Exam Exam: See Below - Vital Signs Vital Signs: Last Vital Signs Temp 35.7 C 05/13/17 12:48 Pulse 84 05/13/17 12:48 Resp 18 05/13/17 12:48 BP 117/72 05/13/17 12:48 Pulse Ox 100 05/13/17 12:48 Weight: 70.307 kg - Exam General: Alert, Oriented, Cooperative HEENT: Conjunctiva Clear, EACs Clear, EOMI, Hearing Intact, Mucosa Moist & [place] , Pupils Equal, Pupils Reactive, Other (Chipped right central incisior, ecchymosis of the upper lip.) Neck: Supple, Trachea Midline Lungs: Clear to Auscultation, Normal Respiratory Effort Cardiovascular: Regular Rate, Regular Rhythm GI/Abdominal Exam: Soft, Non-Tender, No Distention, No Mass, Other (Incisions appear well healed. Ecchymosis around willy-umbilical site. ) Back Exam: Normal Inspection Extremities: Normal Inspection, Normal Range of Motion, Other (ecchymosis over left thumb, but no tenderness to palpation of joint. ) Skin: Warm, Dry, Intact Neurological: Cranial Nerves Intact, Reflexes Equal Bilateral Neuro Extensive - Mental Status: Alert, Oriented x3, Normal Mood/Affect, Normal Cognition, Memory Intact Psychiatric: Alert, Normal Affect, Normal Mood - Patient Data Result Diagrams: 05/13/17 13:14 05/13/17 13:14 *Q Meaningful Use (ADM) - VTE *Q VTE Criteria *Q: - Stroke *Q Stroke Criteria *Q: - AMI *Q AMI Criteria *Q: - Problem List (1) Syncope SNOMED Code(s): 899872989 ICD Code: R55 - SYNCOPE AND COLLAPSE Status: Acute Current Visit: Yes Qualifiers: Syncope type: unspecified Qualified Code(s): R55 - Syncope and collapse (2) Orthostasis SNOMED Code(s): 615465798 ICD Code: I95.1 - ORTHOSTATIC HYPOTENSION Status: Acute Current Visit: Yes (3) Nausea SNOMED Code(s): 614086172 ICD Code: R11.0 - NAUSEA Status: Acute Current Visit: Yes Problem List Initiated/Reviewed/Updated: Yes Orders Last 24hrs: Active Orders 24 hr Category Date Time Status Patient Status [ADT] Routine ADT 05/13/17 15:35 Ordered Oxygen Therapy [RC] PRN Care 05/13/17 15:35 Ordered RT Incentive Spirometry [RC] ASDIRECTED Care 05/13/17 15:35 Ordered Up With Assistance [RC] ASDIRECTED Care 05/13/17 15:35 Ordered Vital Signs [RC] PER UNIT ROUTINE Care 05/13/17 15:35 Ordered Clear Liquid Diet [DIET] Diet 05/13/17 Dinner Ordered CBC WITH AUTO DIFF [HEME] AM Lab 05/14/17 05:11 Ordered COMPREHENSIVE METABOLIC PN,CMP [CHEM] AM Lab 05/14/17 05:11 Ordered Acetaminophen/HYDROcodone [[place] 325-5 MG] Med 05/13/17 15:35 Ordered 2 tab PO Q4H PRN HYDROmorphone [Dilaudid] Med 05/13/17 15:35 Ordered 0.5 mg IVPUSH Q1H PRN Metoclopramide [Reglan] Med 05/13/17 15:45 Ordered 5 mg IV Q6H Ondansetron [Zofran] Med 05/13/17 15:35 Ordered 4 mg IVPUSH Q6H PRN Promethazine [Phenergan] Med 05/13/17 15:35 Ordered 25 mg IM Q6H PRN Resuscitation Status Routine Resus Stat 05/13/17 15:35 Ordered Medication Orders Sodium Chloride (Normal Saline) 1,000 mls @ 150 mls/hr IV ASDIRECTED ELSI Last Admin: 05/13/17 15:11 Dose: 150 mls/hr Sodium Chloride (Saline Flush) 10 ml FLUSH ASDIRECTED PRN PRN Reason: Keep Vein Open Last Admin: 05/13/17 13:26 Dose: 10 ml Sodium Chloride (Saline Flush) 2.5 ml FLUSH ASDIRECTED PRN PRN Reason: Keep Vein Open Last Admin: 05/13/17 13:26 Dose: 2.5 ml Assessment/Plan Comment:: Patient's syncopal event was most likely due to nausea, poor po intake and an orthostatic event after micturation. Will monitor patient overnight since she lives alone. Will resucitated with IVF (NS @ 150ml/hr), clear liquid diet for now, and scheduled reglan with prn phenergan and zofran. If stable overnight will advance diet in am. Will get repeat AM labs (CBC, CMP).
[2017-05-13] MEDS ORDERED: Potassium Chloride 10 MEQ Tab.ER PO ONE (15:58)
[2017-05-13] MEDS: Acetaminophen/HYDROcodone 325-5 MG Tab PO PRN ×2 (16:39→20:58)
[2017-05-13] MEDS: Metoclopramide 10 MG/2 ML SDV IV SCH ×2 (16:41→20:58)
[2017-05-13] MEDS: Phosphorus #1 250 MG Tab PO SCH ×2 (17:17→23:53)
[2017-05-14] MEDS: Sodium Chloride 0.9% 1,000 ML IV SCH (03:52)
[2017-05-14] MEDS: Metoclopramide 10 MG/2 ML SDV IV SCH (03:53)
[2017-05-14] MEDS: Phosphorus #1 250 MG Tab PO SCH ×2 (05:53→12:21)
[2017-05-14 06:34] LABS: CHLORIDE,CL 113 mmol/L (98-110); SODIUM,NA 140 mmol/L (136-146)
[2017-05-14] MEDS ORDERED: Magnesium Sulfate/Water 2 GM in Premix Bag 1 BAG IV ONE (08:23)
[2017-05-14] MEDS ORDERED: Metoclopramide 10 MG/2 ML SDV IV PRN (08:32)
--- NOTE | 2017-05-14 09:07 | PCM.PN ---
- General Info Date of Service: 05/14/17 Functional Status: Reports: Pain Controlled, Tolerating Diet (Patient tolerating clear liquid diet. Has no appetite however), Urinating, Incentive Spirometry, Other (Vitals stable overnight. Adequate UOP) - Review of Systems General: Reports: No Symptoms Pulmonary: Reports: No Symptoms Cardiovascular: Reports: No Symptoms Gastrointestinal: Reports: Decreased Appetite - Patient Data Vitals - Most Recent: Last Vital Signs Temp 37.2 C 05/14/17 08:00 Pulse 81 05/14/17 08:00 Resp 16 05/14/17 08:00 BP 108/66 05/14/17 08:00 Pulse Ox 95 05/14/17 08:00 Weight - Most Recent: 71.033 kg I&O - Last 24 Hours: Intake & Output 05/13/17 05/14/17 05/14/17 22:59 06:59 14:59 Intake Total 810 2062 Output Total 1150 Balance 810 912 Lab Results Last 24 Hours: Laboratory Results - last 24 hr 05/14/17 05/14/17 Range/Units 05:35 05:35 WBC 6.43 (4.0-11.0) K/uL RBC 3.92 L (4.30-5.90) M/uL Hgb 10.6 L (12.0-16.0) g/dL Hct 33.2 L (36.0-46.0) % MCV 84.7 (80.0-98.0) fL MCH 27.0 (27.0-32.0) pg MCHC 31.9 (31.0-37.0) g/dL RDW Std Deviation 42.9 (28.0-62.0) fl RDW Coeff of Rashel 14 (11.0-15.0) % Plt Count 209 (150-400) K/uL MPV 9.70 (7.40-12.00) fL Neut % (Auto) 47.4 L (48.0-80.0) % Lymph % (Auto) 42.5 H (16.0-40.0) % [place] % (Auto) 8.2 (0.0-15.0) % Eos % (Auto) 1.7 (0.0-7.0) % Baso % (Auto) 0.2 (0.0-1.5) % Neut # (Auto) 3.1 (1.4-5.7) K/uL Lymph # (Auto) 2.7 H (0.6-2.4) K/uL [place] # (Auto) 0.5 (0.0-0.8) K/uL Eos # (Auto) 0.1 (0.0-0.7) K/uL Baso # (Auto) 0.0 (0.0-0.1) K/uL Nucleated RBC % 0.0 /100WBC Nucleated RBCs # 0 K/uL Sodium 140 (136-146) mmol/L Potassium 3.8 (3.5-5.1) mmol/L Chloride 113 H (98-110) mmol/L Carbon Dioxide 22 (21-31) mmol/L BUN 11 (6.0-23.0) mg/dL Creatinine 0.9 (0.6-1.5) mg/dL Est Cr Clr Drug Dosing 51.33 mL/min Estimated GFR (MDRD) > 60.0 ml/min Glucose 90 (60-110) mg/dL Calcium 7.6 L (8.8-10.8) mg/dL Phosphorus 2.8 (2.4-4.7) mg/dL Magnesium 1.3 L (1.5-2.3) mEq/L Total Bilirubin 0.9 (0.1-1.5) mg/dL AST 66 H (5-40) IU/L ALT 79 H (8-54) IU/L Alkaline Phosphatase 56 (40-150) Total Protein 5.5 L (6.0-8.0) g/dL Albumin 3.2 L (3.5-5.0) g/dL Globulin 2.3 (2.0-3.5) g/dL Albumin/Globulin Ratio 1.4 (1.3-2.8) Med Orders - Current: Current Medications Hydrocodone Bitart/Acetaminophen ([place] 325-5 Mg) 2 tab PO Q4H PRN PRN Reason: Pain (moderate 4-6) Last Admin: 05/13/17 20:58 Dose: 2 tab Hydromorphone HCl (Dilaudid) 0.5 mg IVPUSH Q1H PRN PRN Reason: Pain (severe 7-10) Magnesium Sulfate 2 gm/ Premix 50 mls @ 50 mls/hr IV ONETIME ONE Stop: 05/14/17 09:22 Metoclopramide HCl (Reglan) 5 mg IV Q6H PRN PRN Reason: Nausea Ondansetron HCl (Zofran) 4 mg IVPUSH Q6H PRN PRN Reason: Nausea/Vomiting Promethazine HCl (Phenergan) 25 mg IM Q6H PRN PRN Reason: Nausea Sodium Chloride (Saline Flush) 10 ml FLUSH ASDIRECTED PRN PRN Reason: Keep Vein Open Last Admin: 05/13/17 13:26 Dose: 10 ml Sodium Chloride (Saline Flush) 2.5 ml FLUSH ASDIRECTED PRN PRN Reason: Keep Vein Open Last Admin: 05/13/17 13:26 Dose: 2.5 ml Sodium Phosphate (Neutra-Phos) 250 mg PO QID [facility] Last Admin: 05/14/17 05:53 Dose: 250 mg Discontinued Medications Sodium Chloride (Normal Saline) 1,000 mls @ 999 mls/hr IV STAT ONE Stop: 05/13/17 14:06 Last Admin: 05/13/17 13:26 Dose: 999 mls/hr Sodium Chloride (Normal Saline) 1,000 mls @ 150 mls/hr IV ASDIRECTED [facility] Last Admin: 05/14/17 03:52 Dose: 150 mls/hr Metoclopramide HCl (Reglan) 5 mg IV Q6H [facility] Last Admin: 05/14/17 03:53 Dose: 5 mg Ondansetron HCl (Zofran) 4 mg IVPUSH ONETIME ONE Stop: 05/13/17 13:07 Last Admin: 05/13/17 13:32 Dose: 4 mg Ondansetron HCl (Zofran) 4 mg IVPUSH ONETIME ONE Stop: 05/13/17 14:54 Last Admin: 05/13/17 15:11 Dose: 4 mg Potassium Chloride (Klor-Con M20) 40 meq PO ONETIME ONE Stop: 05/13/17 14:53 Last Admin: 05/13/17 15:46 Dose: Not Given Potassium Chloride (Klor-Con 10) 10 meq PO ONETIME ONE Stop: 05/13/17 15:59 Last Admin: 05/13/17 16:39 Dose: 10 meq - Exam General: Alert, Oriented HEENT: Pupils Equal, Pupils Reactive, Other (Ecchymosis on upper lip improved. ) Neck: Supple Lungs: Normal Respiratory Effort Cardiovascular: Regular Rate GI/Abdominal Exam: Soft, Non-Tender, No Distention, No Mass Extremities: Normal Inspection, Normal Range of Motion - Problem List & Annotations (1) Syncope SNOMED Code(s): 971694807 Code(s): R55 - SYNCOPE AND COLLAPSE Status: Acute Current Visit: Yes Qualifiers: Syncope type: unspecified Qualified Code(s): R55 - Syncope and collapse (2) Orthostasis SNOMED Code(s): 047016223 Code(s): I95.1 - ORTHOSTATIC HYPOTENSION Status: Acute Current Visit: Yes (3) Nausea SNOMED Code(s): 967986295 Code(s): R11.0 - NAUSEA Status: Acute Current Visit: Yes - Problem List Review Problem List Initiated/Reviewed/Updated: Yes - My Orders Last 24 Hours: My Active Orders 05/13/17 15:35 Patient Status [ADT] Routine Oxygen Therapy [RC] PRN Up With Assistance [RC] ASDIRECTED Vital Signs [RC] Q4H Acetaminophen/HYDROcodone [[place] 325-5 MG] 2 tab PO Q4H PRN HYDROmorphone [Dilaudid] 0.5 mg IVPUSH Q1H PRN Ondansetron [Zofran] 4 mg IVPUSH Q6H PRN Promethazine [Phenergan] 25 mg IM Q6H PRN Resuscitation Status Routine 05/13/17 15:39 Telemetry Monitoring [Cardiac Monitoring] [RC] . DIRECTED 05/13/17 18:00 Phosphorus #1 [Neutra-Phos] 250 mg PO QID 05/14/17 08:23 Magnesium Sulfate/Water [Magnesium Sulfate 2 GM in Water 50 ML] 2 gm Premix Bag 1 bag IV ONETIME 05/14/17 08:32 Metoclopramide [Reglan] 5 mg IV Q6H PRN 05/14/17 Lunch Regular Diet [DIET] - Plan Plan:: Patient admitted this morning that she was having a BM before her syncopal event yesterday. This makes me think that she had a vaso vagal episode secondary to dehydration from nausea. She is feeling much better this morning but doesn't have much of an appetite. Her nausea is gone however. Will replace magnesium this morning. Her phosphorus level is better. She LFTs (ALT, AST) were slightly elevated this morning but her bilirubin and alk phos are within normal limits. I wonder if this was due to some dehydration as well. Her abdomen is completely begin. -Replace Mag -Advance diet from clears to regular. If tolerating a regular diet, can discharge home with po nausea meds. Would follow up with appointment on sunday and repeat LFTs.
[2017-05-14 13:20] VITALS: BP 119/65
--- NOTE | 2017-05-14 15:54 | PCM.DCSUM1 ---
Discharge Summary - Hospital Course Free Text/Narrative:: 56 year old female who underwent an uncomplicated laparoscopic cholecystectomy on May 09, 2017 for biliary hyperkinesia and biliary colic. She was discharged home the same day. She was feeling well until Sunday night when she became nauseated. She developed dry heaves the next day and quit eating and drinking fluids.. She had an unwitnessed syncopal event after going to the bathroom to have a BM. She was walking down some stairs afterwards and woke up on the ground. She had chipped her tooth and had bruising on her upper lip. She had a small area of bruising on her left thumb. She was brought in by EMS. She had an elevated heart rate with standing, but her vitals were stable. A head, facial and neck CT were normal. Her labs showed mildly elevated AST, ALT. Bilirubin was within normal limits. BUN/Cr were within normal limits. Troponin and EKG were normal. CBC was normal. Her UA showed some bacteria but many epithelial cells. She was given IV fluids and admitted to the hospital for close monitoring. She is given scheduled Reglan with good improvement in her nausea. she was placed on telemetry. Her vitals were stable throughout her admission. She is able to tolerate a clear liquid diet and advance to regular. Her AST and ALT were slightly elevated but neither were over 100. She was feeling well the next day and discharged home with ALBERTO metzger. - Discharge Data Discharge Date: 05/14/17 Discharge Disposition: Home, Self-Care 01 Condition: Fair - Discharge Diagnosis/Problem(s) (1) Syncope SNOMED Code(s): 052649844 ICD Code: R55 - SYNCOPE AND COLLAPSE Status: Acute Qualifiers: Syncope type: unspecified Qualified Code(s): R55 - Syncope and collapse (2) Orthostasis SNOMED Code(s): 976912563 ICD Code: I95.1 - ORTHOSTATIC HYPOTENSION Status: Acute (3) Nausea SNOMED Code(s): 056731086 ICD Code: R11.0 - NAUSEA Status: Acute (4) Hypokalemia SNOMED Code(s): 62900411 ICD Code: E87.6 - HYPOKALEMIA Status: Acute (5) Hypophosphatemia SNOMED Code(s): 0950980 ICD Code: E83.39 - OTHER DISORDERS OF PHOSPHORUS METABOLISM Status: Acute (6) Hypomagnesemia SNOMED Code(s): 072724192 ICD Code: E83.42 - HYPOMAGNESEMIA Status: Acute - Patient Summary/Data Labs Pending at D/C: CMP - Patient Instructions Diet: Regular Diet as Tolerated Activity: No Lifting Over 20 Pounds (for one month after surgery ), Rest and Relax Today Showering/Bathing: May Shower, No Tub Bathing/Swimming (for one more week ) Notify Provider of: Fever, Increased Pain, Nausea and/or Vomiting (that is intractable and not getting better with zofran) - Discharge Plan Prescriptions/Med Rec: Ondansetron [Zofran ODT] 4 mg PO Q6H PRN #30 tab.dis PRN Reason: Nausea Home Medications: Home Meds Escitalopram [Lexapro] 20 mg PO DAILY 10/06/16 [History] Estradiol 1 patch TRDERM ASDIRECTED 10/06/16 [History] Fluticasone Propionate [Flonase] 1 spray NASBOTH DAILY PRN 10/06/16 [History] Progesterone,Micronized [Prometrium] 100 mg PO DAILY 10/06/16 [History] Ondansetron [Zofran ODT] 4 mg PO Q6H PRN #30 tab.dis 05/14/17 [Rx] Patient Handouts: Nausea, Adult, Ondansetron tablets, Syncope, [id number] Referrals: Vivi Lui MD [Physician] - 05/18/17 11:15 am - General Info Date of Service: 05/14/17 Functional Status: Reports: Pain Controlled, Tolerating Diet, Ambulating, Urinating, New Symptoms - Review of Systems General: Reports: No Symptoms HEENT: Reports: No Symptoms Pulmonary: Reports: No Symptoms Cardiovascular: Reports: No Symptoms Gastrointestinal: Reports: No Symptoms - Patient Data Vitals - Most Recent: Last Vital Signs Temp 36.7 C 05/14/17 12:00 Pulse 81 05/14/17 08:00 Resp 16 05/14/17 12:00 BP 119/65 05/14/17 12:00 Pulse Ox 100 05/14/17 12:00 Weight - Most Recent: 71.033 kg I&O - Last 24 hours: Intake & Output 05/14/17 05/14/17 05/14/17 06:59 14:59 22:59 Intake Total 2062 50 Output Total 1150 Balance 912 50 Lab Results - Last 24 hrs: Laboratory Results - last 24 hr 05/14/17 05/14/17 Range/Units 05:35 05:35 WBC 6.43 (4.0-11.0) K/uL RBC 3.92 L (4.30-5.90) M/uL Hgb 10.6 L (12.0-16.0) g/dL Hct 33.2 L (36.0-46.0) % MCV 84.7 (80.0-98.0) fL MCH 27.0 (27.0-32.0) pg MCHC 31.9 (31.0-37.0) g/dL RDW Std Deviation 42.9 (28.0-62.0) fl RDW Coeff of Rashel 14 (11.0-15.0) % Plt Count 209 (150-400) K/uL MPV 9.70 (7.40-12.00) fL Neut % (Auto) 47.4 L (48.0-80.0) % Lymph % (Auto) 42.5 H (16.0-40.0) % [place] % (Auto) 8.2 (0.0-15.0) % Eos % (Auto) 1.7 (0.0-7.0) % Baso % (Auto) 0.2 (0.0-1.5) % Neut # (Auto) 3.1 (1.4-5.7) K/uL Lymph # (Auto) 2.7 H (0.6-2.4) K/uL [place] # (Auto) 0.5 (0.0-0.8) K/uL Eos # (Auto) 0.1 (0.0-0.7) K/uL Baso # (Auto) 0.0 (0.0-0.1) K/uL Nucleated RBC % 0.0 /100WBC Nucleated RBCs # 0 K/uL Sodium 140 (136-146) mmol/L Potassium 3.8 (3.5-5.1) mmol/L Chloride 113 H (98-110) mmol/L Carbon Dioxide 22 (21-31) mmol/L BUN 11 (6.0-23.0) mg/dL Creatinine 0.9 (0.6-1.5) mg/dL Est Cr Clr Drug Dosing 51.33 mL/min Estimated GFR (MDRD) > 60.0 ml/min Glucose 90 (60-110) mg/dL Calcium 7.6 L (8.8-10.8) mg/dL Phosphorus 2.8 (2.4-4.7) mg/dL Magnesium 1.3 L (1.5-2.3) mEq/L Total Bilirubin 0.9 (0.1-1.5) mg/dL AST 66 H (5-40) IU/L ALT 79 H (8-54) IU/L Alkaline Phosphatase 56 (40-150) Total Protein 5.5 L (6.0-8.0) g/dL Albumin 3.2 L (3.5-5.0) g/dL Globulin 2.3 (2.0-3.5) g/dL Albumin/Globulin Ratio 1.4 (1.3-2.8) Med Orders - Current: Current Medications Hydrocodone Bitart/Acetaminophen ([place] 325-5 Mg) 2 tab PO Q4H PRN PRN Reason: Pain (moderate 4-6) Last Admin: 05/13/17 20:58 Dose: 2 tab Hydromorphone HCl (Dilaudid) 0.5 mg IVPUSH Q1H PRN PRN Reason: Pain (severe 7-10) Metoclopramide HCl (Reglan) 5 mg IV Q6H PRN PRN Reason: Nausea Ondansetron HCl (Zofran) 4 mg IVPUSH Q6H PRN PRN Reason: Nausea/Vomiting Promethazine HCl (Phenergan) 25 mg IM Q6H PRN PRN Reason: Nausea Sodium Chloride (Saline Flush) 10 ml FLUSH ASDIRECTED PRN PRN Reason: Keep Vein Open Last Admin: 05/13/17 13:26 Dose: 10 ml Sodium Chloride (Saline Flush) 2.5 ml FLUSH ASDIRECTED PRN PRN Reason: Keep Vein Open Last Admin: 05/13/17 13:26 Dose: 2.5 ml Sodium Phosphate (Neutra-Phos) 250 mg PO QID [facility] Last Admin: 05/14/17 12:21 Dose: 250 mg Discontinued Medications Sodium Chloride (Normal Saline) 1,000 mls @ 999 mls/hr IV STAT ONE Stop: 05/13/17 14:06 Last Admin: 05/13/17 13:26 Dose: 999 mls/hr Sodium Chloride (Normal Saline) 1,000 mls @ 150 mls/hr IV ASDIRECTED [facility] Last Admin: 05/14/17 03:52 Dose: 150 mls/hr Magnesium Sulfate 2 gm/ Premix 50 mls @ 50 mls/hr IV ONETIME ONE Stop: 05/14/17 09:22 Last Admin: 05/14/17 09:23 Dose: 50 mls/hr Metoclopramide HCl (Reglan) 5 mg IV Q6H [facility] Last Admin: 05/14/17 03:53 Dose: 5 mg Ondansetron HCl (Zofran) 4 mg IVPUSH ONETIME ONE Stop: 05/13/17 13:07 Last Admin: 05/13/17 13:32 Dose: 4 mg Ondansetron HCl (Zofran) 4 mg IVPUSH ONETIME ONE Stop: 05/13/17 14:54 Last Admin: 05/13/17 15:11 Dose: 4 mg Potassium Chloride (Klor-Con M20) 40 meq PO ONETIME ONE Stop: 05/13/17 14:53 Last Admin: 05/13/17 15:46 Dose: Not Given Potassium Chloride (Klor-Con 10) 10 meq PO ONETIME ONE Stop: 05/13/17 15:59 Last Admin: 05/13/17 16:39 Dose: 10 meq - Exam General: Reports: Alert, Oriented HEENT: Reports: Pupils Equal, Pupils Reactive Neck: Reports: Supple Lungs: Reports: Clear to Auscultation, Normal Respiratory Effort Cardiovascular: Reports: Regular Rate, Regular Rhythm GI/Abdominal Exam: Soft, Non-Tender, No Distention, No Mass Back Exam: Reports: Normal Inspection Extremities: Normal Inspection, Normal Range of Motion Skin: Reports: Warm, Dry, Intact Wound/Incisions: Reports: Healing Well EKG INTERPRETATION Rhythm: NSR [place]: Normal QRS: Normal ST-T: Normal QT: Normal *Q Meaningful Use (DIS) - VTE *Q VTE Criteria *Q: - Stroke *Q Stroke Criteria *Q: - AMI *Q AMI Criteria *Q:
--- NOTE | 2017-05-14 16:07 | CT ---
EXAM DATE: 05/13/17 PATIENT'S AGE: 56 Patient: MABLE RONQUILLO Facility: [place], [place] Site . Site : 1960 Study: CT Facial wo cont [id number]/4/2018 2:01:34 PM Ordering Physician: Suellen Hartmann Final Report: INDICATION: Syncope. Patent patient fainted. Fell and hit mouth today. Pain. Broke front tooth. Pain in mouth. TECHNIQUE: CT head without IV contrast. CT facial bones without IV contrast including axial, coronal sagittal images. CT cervical spine without IV contrast including axial, coronal and sagittal images. FINDINGS: Lucency and fluid along the back left upper molar could be infectious or inflammatory. Correlation to dental exam recommended. Small amount of fluid in the left maxillary sinus likely related to this dental disease. No facial or skull fractures. No skull fracture. No intracranial hemorrhage, edema, or mass effect. Mild cerebral atrophy. No acute fracture or subluxation in cervical spine. Loss of cervical lordosis could be related to cervical spasm. Mild degenerative and hypertrophic changes in the cervical spine. Mild disc bulging at C4. The remainder negative. IMPRESSION: 1. No facial or skull fracture. 2. No acute intracranial disease. 3. No fracture or subluxation in cervical spine. Mild degenerative changes cervical spine. 4. Lucency and fluid around the root of the left upper back molar likely inflammatory and could be related to the dental disease. Cannot exclude a abscess developing along the root of this tooth. Mild fluid in the left maxillary sinus may be related to this dental disease. Suggest correlation with dental exam. Other findings as above. Please note that all CT scans at this facility use dose modulation, iterative reconstruction, and/or weight-based dosing when appropriate to reduce radiation dose to as low as reasonably achievable. Dictated by Dallin Cerda MD @ May 13 2017 2:45PM (Electronic Signature) Report Signed by Proxy. EDDIE
--- NOTE | 2017-05-14 16:09 | CT ---
EXAM DATE: 05/13/17 PATIENT'S AGE: 56 Patient: MABLE RONQUILLO Facility: [place], [place] Site . Site : 1960 Study: CT Head WO CONT [id number] 2:02:27 PM Ordering Physician: Suellen Hartmann Final Report: INDICATION: Syncope. Patent patient fainted. Fell and hit mouth today. Pain. Broke front tooth. Pain in mouth. TECHNIQUE: CT head without IV contrast. CT facial bones without IV contrast including axial, coronal sagittal images. CT cervical spine without IV contrast including axial, coronal and sagittal images. FINDINGS: Lucency and fluid along the back left upper molar could be infectious or inflammatory. Correlation to dental exam recommended. Small amount of fluid in the left maxillary sinus likely related to this dental disease. No facial or skull fractures. No skull fracture. No intracranial hemorrhage, edema, or mass effect. Mild cerebral atrophy. No acute fracture or subluxation in cervical spine. Loss of cervical lordosis could be related to cervical spasm. Mild degenerative and hypertrophic changes in the cervical spine. Mild disc bulging at C4. The remainder negative. IMPRESSION: 1. No facial or skull fracture. 2. No acute intracranial disease. 3. No fracture or subluxation in cervical spine. Mild degenerative changes cervical spine. 4. Lucency and fluid around the root of the left upper back molar likely inflammatory and could be related to the dental disease. Cannot exclude a abscess developing along the root of this tooth. Mild fluid in the left maxillary sinus may be related to this dental disease. Suggest correlation with dental exam. Other findings as above. Please note that all CT scans at this facility use dose modulation, iterative reconstruction, and/or weight-based dosing when appropriate to reduce radiation dose to as low as reasonably achievable. Dictated by Dallin Cerda MD @ May 13 2017 2:33PM (Electronic Signature) Report Signed by Proxy. EDDIE
--- NOTE | 2017-05-14 16:10 | CT ---
EXAM DATE: 05/13/17 PATIENT'S AGE: 56 Patient: MABLE RONQUILLO Facility: [place], [place] Site . Site : 1960 Study: CT Spine Cervical WO CONT [id number] 2:06:53 PM Ordering Physician: Suellen Hartmann Final Report: INDICATION: Syncope. Patent patient fainted. Fell and hit mouth today. Pain. Broke front tooth. Pain in mouth. TECHNIQUE: CT head without IV contrast. CT facial bones without IV contrast including axial, coronal sagittal images. CT cervical spine without IV contrast including axial, coronal and sagittal images. FINDINGS: Lucency and fluid along the back left upper molar could be infectious or inflammatory. Correlation to dental exam recommended. Small amount of fluid in the left maxillary sinus likely related to this dental disease. No facial or skull fractures. No skull fracture. No intracranial hemorrhage, edema, or mass effect. Mild cerebral atrophy. No acute fracture or subluxation in cervical spine. Loss of cervical lordosis could be related to cervical spasm. Mild degenerative and hypertrophic changes in the cervical spine. Mild disc bulging at C4. The remainder negative. IMPRESSION: 1. No facial or skull fracture. 2. No acute intracranial disease. 3. No fracture or subluxation in cervical spine. Mild degenerative changes cervical spine. 4. Lucency and fluid around the root of the left upper back molar likely inflammatory and could be related to the dental disease. Cannot exclude a abscess developing along the root of this tooth. Mild fluid in the left maxillary sinus may be related to this dental disease. Suggest correlation with dental exam. Other findings as above. Please note that all CT scans at this facility use dose modulation, iterative reconstruction, and/or weight-based dosing when appropriate to reduce radiation dose to as low as reasonably achievable. Dictated by Dallin Cerda MD @ May 13 2017 2:45PM (Electronic Signature) Report Signed by Proxy. EDDIE
--- NOTE | 2017-05-16 14:58 | PCM.SN ---
- Free Text/Narrative Note: Patient had a UA drawn in the ER. It had many squamous cells in the specimen. Her culture came back with >100K mixed naima. She had no signs or symptoms of a UTI. Will not be treating as I feel the specimen was contaminated.
== END 2017-05-14 16:50 | disposition home or self-care (01) ==
LOC: MW.ED 12:40 → MW.MS 15:30
PROVIDERS: ADMIT Surgery; ATTEND Surgery
DX: R55 Syncope and collapse (principal); R11.0 Nausea; E87.6 Hypokalemia; E83.39 Other disorders of phosphorus metabolism; E83.42 Hypomagnesemia; Z90.49 Acquired absence of other specified parts of digestive tract; Z79.899 Other long term (current) drug therapy; Z91.041 Radiographic dye allergy status; K21.9 Gastro-esophageal reflux disease without esophagitis; F41.9 Anxiety disorder, unspecified; F32.9 Major depressive disorder, single episode, unspecified; S00.531A Contusion of lip, initial encounter; S60.012A Contusion of left thumb without damage to nail, initial encounter; Z85.828 Personal history of other malignant neoplasm of skin; Z98.890 Other specified postprocedural states; Z98.51 Tubal ligation status; W10.9XXA Fall (on) (from) unspecified stairs and steps, initial encounter
CPT/HCPCS: 36415; 70450; 70486; 72125; 80053; 81001; 82150; 82550; 83690; 83735; 84100; 84484; 85025; 87086; 93005; 96361; 96374; 96375; 96376; 99285; A9270; G0378; J2405; J2765; J3475; J7040; 99284

== ENCOUNTER 2017-05-15 13:40 | Emergency (ER) | payer BC ==
[2017-05-15] MEDS ORDERED: Acetaminophen 325 MG Tab PO ONE (13:59)
[2017-05-15] MEDS ORDERED: Ondansetron 4 MG Tab.DIS PO ONE (13:59)
--- NOTE | 2017-05-15 14:05 | EDM.PDOC ---
ED HPI GENERAL MEDICAL PROBLEM - General Chief Complaint: Syncope Stated Complaint: DIZZY Time Seen by Provider: 05/15/17 13:50 Source of Information: Reports: Patient History Limitations: Reports: No Limitations - History of Present Illness INITIAL COMMENTS - FREE TEXT/NARRATIVE: History of present illness: []Patient had a cholecystectomy on May 09 and had a syncopal episode on the May 13. She was admitted for observation and discharged yesterday. Patient went to work this morning approximately 2 hours but did not eat and started feeling dizzy and lightheaded like she was going to pass out again. Review of systems: As per history of present illness and below otherwise all systems reviewed and negative. Past medical history: As per history of present illness and as reviewed below otherwise noncontributory. Surgical history: As per history of present illness and as reviewed below otherwise noncontributory. Social history: No reported history of drug or alcohol abuse. Family history: As per history of present illness and as reviewed below otherwise noncontributory. Physical exam: General: Well developed, well nourished in NAD HEENT: Atraumatic, normocephalic, pupils reactive, negative for conjunctival pallor or scleral icterus, mucous membranes moist, throat clear, neck supple, nontender, trachea midline. Lungs: Clear to auscultation, breath sounds equal bilaterally, chest nontender. Heart: S1S2, regular, negative for clicks, rubs, or JVD. Abdomen: Soft, nondistended, nontender. Negative for masses or hepatosplenomegaly. Negative for costovertebral tenderness. Pelvis: Stable nontender. Genitourinary: Deferred. Rectal: Deferred. Extremities: Atraumatic, negative for cords or calf pain. Neurovascular unremarkable. Neuro: Awake, alert, oriented. Cranial nerves II through XII unremarkable. Cerebellum unremarkable. Motor and sensory unremarkable throughout. Exam nonfocal. Diagnostics: [] Therapeutics: [] Impression: [] Plan: [] Definitive disposition and diagnosis as appropriate pending reevaluation and review of above. abdominal pain Pain Score (Numeric/FACES): 3 - Related Data Allergies Allergy/AdvReac Type Severity Reaction Status Date / Time Gadolinium-Containing Allergy Hives Verified 05/15/17 13:44 Contrast Medi Home Meds: Home Meds Escitalopram [Lexapro] 20 mg PO DAILY 10/06/16 [History] Estradiol 1 patch TRDERM ASDIRECTED 10/06/16 [History] Fluticasone Propionate [Flonase] 1 spray NASBOTH DAILY PRN 10/06/16 [History] Progesterone,Micronized [Prometrium] 100 mg PO DAILY 10/06/16 [History] Ondansetron [Zofran ODT] 4 mg PO Q6H PRN #30 tab.dis 05/14/17 [Rx] Past Medical History HEENT History: Reports: Sinusitis Respiratory History: Reports: None Gastrointestinal History: Reports: GERD Genitourinary History: Reports: None 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: , Other (See Below) Other OB/BYN History: ESSURE in place 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 History: Reports: Fracture Other 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 History: fx foot Neurological History: Reports: None Psychiatric History: Reports: Anxiety, Depression Endocrine/Metabolic History: Reports: None Hematologic History: Reports: None Immunologic History: Reports: None Oncologic (Cancer) History: Reports: Basal Cell Carcinoma, Other (See Below) Other Oncologic History: basal cell carcinoma to right shoulder Dermatologic History: Reports: None - Past Surgical History Head Surgeries/Procedures: Reports: None HEENT Surgical History: Reports: LASIK GI Surgical History: Reports: Cholecystectomy, Colonoscopy Female Surgical History: Reports: Tubal Ligation Dermatological Surgical History: Reports: Skin Biopsy Social & Family History - Family History Family Medical History: Noncontributory - Tobacco Use Smoking Status *Q: Never Smoker Second Hand Smoke Exposure: No - Caffeine Use Caffeine Use: Reports: None - Alcohol Use Days Per Week of Alcohol Use: 1 - Recreational Drug Use Recreational Drug Use: No Drug Use in Last 12 Months: No ED ROS GENERAL - Review of Systems Review Of Systems: See Below (See history of present illness) ED EXAM, GENERAL - Physical Exam Exam: See Below (See history of present illness) Course - Vital Signs Last Recorded V/S: Last Vital Signs Temp 97.8 F 05/15/17 13:55 Pulse 79 05/15/17 13:55 Resp 22 H 05/15/17 13:55 BP 127/80 05/15/17 13:55 Pulse Ox 100 05/15/17 13:55 - Orders/Labs/Meds Labs: Laboratory Tests 05/15/17 05/15/17 05/15/17 Range/Units 14:10 14:10 14:10 WBC 8.81 (4.0-11.0) K/uL RBC 4.63 (4.30-5.90) M/uL Hgb 12.6 (12.0-16.0) g/dL Hct 38.7 (36.0-46.0) % MCV 83.6 (80.0-98.0) fL MCH 27.2 (27.0-32.0) pg MCHC 32.6 (31.0-37.0) g/dL RDW Std Deviation 42.5 (28.0-62.0) fl RDW Coeff of Rashel 14 (11.0-15.0) % Plt Count 276 (150-400) K/uL MPV 9.30 (7.40-12.00) fL Neut % (Auto) 50.9 (48.0-80.0) % Lymph % (Auto) 40.5 H (16.0-40.0) % Becker % (Auto) 7.9 (0.0-15.0) % Eos % (Auto) 0.6 (0.0-7.0) % Baso % (Auto) 0.1 (0.0-1.5) % Neut # (Auto) 4.5 (1.4-5.7) K/uL Lymph # (Auto) 3.6 H (0.6-2.4) K/uL Becker # (Auto) 0.7 (0.0-0.8) K/uL Eos # (Auto) 0.1 (0.0-0.7) K/uL Baso # (Auto) 0.0 (0.0-0.1) K/uL Nucleated RBC % 0.0 /100WBC Nucleated RBCs # 0 K/uL Sodium 138 (136-146) mmol/L Potassium 3.3 L (3.5-5.1) mmol/L Chloride 105 (98-110) mmol/L Carbon Dioxide 23 (21-31) mmol/L BUN 11 (6.0-23.0) mg/dL Creatinine 1.0 (0.6-1.5) mg/dL Est Cr Clr Drug Dosing 64.88 mL/min Estimated GFR (MDRD) 57.8 ml/min Glucose 76 (60-110) mg/dL Calcium 9.5 (8.8-10.8) mg/dL Total Bilirubin 1.2 (0.1-1.5) mg/dL AST 32 (5-40) IU/L ALT 66 H (8-54) IU/L Alkaline Phosphatase 72 (40-150) Total Protein 7.6 (6.0-8.0) g/dL Albumin 4.3 (3.5-5.0) g/dL Globulin 3.3 (2.0-3.5) g/dL Albumin/Globulin Ratio 1.3 (1.3-2.8) Lipase 36 (7-80) U/L Urine Color YELLOW Urine Appearance CLEAR Urine pH 8.0 (5.0-8.0) Ur Specific [place] 1.010 (1.001-1.035) Urine Protein NEGATIVE (NEGATIVE) mg/dL Urine Glucose (UA) NEGATIVE (NEGATIVE) mg/dL Urine Ketones NEGATIVE (NEGATIVE) mg/dL Urine Occult Blood MODERATE (NEGATIVE) Urine Nitrite NEGATIVE (NEGATIVE) Urine Bilirubin NEGATIVE (NEGATIVE) Urine Urobilinogen 0.2 (<2.0) EU/dL Ur Leukocyte Esterase NEGATIVE (NEGATIVE) Urine RBC 1-2 (0-2/HPF) Urine WBC 0-1 (0-5/HPF) Ur Epithelial Cells RARE (NONE-FEW) Urine Bacteria RARE (NEGATIVE) Meds: Medications Discontinued Medications Generic Name Dose Route Start Last Admin Trade Name Hosea PRN Reason Stop Dose Admin Acetaminophen 650 mg 05/15/17 13:59 05/15/17 14:09 Tylenol PO 05/15/17 14:00 650 mg NOW ONE Administration Meclizine HCl 25 mg 05/15/17 14:55 05/15/17 14:59 Antivert PO 05/15/17 14:56 25 mg ONETIME ONE Administration Ondansetron HCl 4 mg 05/15/17 13:59 05/15/17 14:10 Zofran Odt PO 05/15/17 14:00 4 mg ONETIME ONE Administration Departure - Departure Time of Disposition: 15:17 Disposition: Home, Self-Care 01 Condition: Good Clinical Impression: Dizziness - Discharge Information Referrals: PCP,Unknown [Primary Care Provider] - Vivi Lui MD [Physician] - Forms: ED Department Discharge Additional Instructions: The following information is given to patients seen in the emergency department who are being discharged to home. This information is to outline your options for follow-up care. We provide all patients seen in our emergency department with a follow-up referral. The need for follow-up, as well as the timing and circumstances, are variable depending upon the specifics of your emergency department visit. If you don't have a primary care physician on staff, we will provide you with a referral. We always advise you to contact your personal physician following an emergency department visit to inform them of the circumstance of the visit and for follow-up with them and/or the need for any referrals to a consulting specialist. The emergency department will also refer you to a specialist when appropriate. This referral assures that you have the opportunity for follow-up care with a specialist. All of these measure are taken in an effort to provide you with optimal care, which includes your follow-up. Under all circumstances we always encourage you to contact your private physician who remains a resource for coordinating your care. When calling for follow-up care, please make the office aware that this follow-up is from your recent emergency room visit. If for any reason you are refused follow-up, please contact the [facility] Emergency Department at and asked to speak to the emergency department charge nurse. Follow-up with Dr. Vargas as needed for follow-up with primary care [facility] [address] [place] [id number]
[2017-05-15] MEDS ORDERED: Meclizine 25 MG Tab PO ONE (14:55)
[2017-05-15 15:57] VITALS: BP 118/64
== END 2017-05-15 15:54 | disposition home or self-care (01) ==
LOC: MW.ED 13:40
DX: R42 Dizziness and giddiness (principal); Z79.899 Other long term (current) drug therapy
CPT/HCPCS: 36415; 80053; 81001; 83690; 85025; 93005; 99284; A9270; 99282